=== PATIENT | female | born 1950 | race Caucasian/White ===

== ENCOUNTER 2021-05-02 11:20 | Emergency (ER) | payer MEDICARE, MEDICAID ==
[~2021-05-02] VITALS: Ht 157.5 cm; Wt 94.1 kg
[~2021-05-02 11:20] MED LIST: ASPI-611 PO; ATEN25TA PO; BENA1TAB14 PO; ESTR0.6261 PO; HYDR-4069 PO; IBUP-1986 PO; MONT10TA21 PO; SIMV40TA PO
[2021-05-02 13:27] VITALS: BP 153/93
== END 2021-05-02 15:02 | disposition home or self-care (01) ==
LOC: ER 11:20
DX: M25.562 Pain in left knee (principal); R22.42 Localized swelling, mass and lump, left lower limb; E78.00 Pure hypercholesterolemia, unspecified; I10 Essential (primary) hypertension; M19.90 Unspecified osteoarthritis, unspecified site; G89.29 Other chronic pain; Z79.82 Long term (current) use of aspirin; Z79.899 Other long term (current) drug therapy
CPT/HCPCS: 29505; 73564; 99283

== ENCOUNTER 2022-08-23 07:34 | Day surgery (SDC) | payer MEDICARE, MEDICAID ==
[2022-08-16 12:12] LABS: CLARITY,URINE SLIGHTLY CLOUDY (Clear); COLOR,URINE STRAW (Yellow); GLUCOSE, URINE NEGATIVE (Neg); KETONES,URINE NEGATIVE (Neg); LEUKOCYTE ESTERASE ,URINE NEGATIVE (Neg); NITRITES, URINE NEGATIVE (Neg); OCCULT BLOOD,URINE NEGATIVE (Neg); PROTEIN,URINE NEGATIVE (Neg); UROBILINOGEN,URINE 0.2 E.U/dL (0.2-1.0)
[2022-08-16 12:28] LABS: BASOPHILS % (AUTO) 0.4 % (0-1); EOSINOPHILS # (AUTO) 0.1 X10'3 (0-0.9); EOSINOPHILS % (AUTO) 1.3 % (0-6); LYMPHOCYTES # (AUTO) 1.8 X10'3 (1.1-4.8); MEAN CORPUSCULAR HEMOGLOBIN 31.2 PG (27.0-31.0); MEAN CORPUSCULAR HGB CONC 33.6 g/dL (33.0-36.5); MEAN CORPUSCULAR VOLUME 92.9 FL (78-98); MONOCYTES # (AUTO) 0.7 X10'3 (0-0.9); NEUTROPHILS # (AUTO) 4.7 X10'3 (1.8-7.7); NEUTROPHILS % (AUTO) 64.3 % (42-75); PRE OP HEMATOCRIT 44.7 % (35.0-45.0); PRE OP PLATELET COUNT 155 X10'3 (140-440); RED BLOOD COUNT 4.81 X10'6 (4.20-5.60); RED CELL DISTRIBUTION WIDTH 12.6 % (11.5-14.5)
[2022-08-16 12:34] LABS: UA COLLECTION TYPE NON-SPECIFIED
[2022-08-16 12:35] LABS: SQUAMOUS EPITHELIAL CELL,UR MODERATE /LPF (FEW)
[2022-08-16 12:36] LABS: BACTERIA,URINE FEW /HPF (Neg); RBC,URINE 0-2 /HPF (0-2); WBC,URINE 0-4 /HPF (0-4)
[2022-08-16 12:41] LABS: ALBUMIN 3.4 G/DL (3.4-5.0); ALBUMIN/GLOBULIN RATIO 0.9 (1.1-1.5); ALKALINE PHOSPHATASE 84 IU/L (46-116); BLOOD UREA NITROGEN 9 MG/DL (7-18); BUN/CREATININE RATIO 17.3 (6.6-38.0); CALCIUM 9.1 MG/DL (8.5-10.1); CHLORIDE 101 MMOL/L (99-107); CREATININE 0.52 MG/DL (0.40-0.90); PRE OP ALT 19 U/L (30-65); PRE OP ANION GAP 6 (8-16); PRE OP AST 25 U/L (10-37); PRE OP BILIRUB, TOTAL 0.5 MG/DL (0.0-1.0); PRE OP GLUCOSE 81 MG/DL (70-104); PRE OP POTASSIUM 3.4 MMOL/L (3.4-5.1); PRE OP SODIUM 137 MMOL/L (135-145); TOTAL CARBON DIOXIDE 29.7 MMOL/L (24-32); eGFR > 90 ML/MIN
[~2022-08-23] VITALS: Ht 152.4 cm; Wt 99.3 kg
[2022-08-23] VITALS (8 sets, daily range): BP systolic 121–142; BP diastolic 74–92
[~2022-08-23 07:34] MED LIST changes: -ASPI-611 PO; -ATEN25TA PO; +CARV-50 PO; +CYCL5TAB PO; +DOCUMENT DATE & TIME OF BETA-BLOCKER PO ONE; +ERGO500093 PO; +ESTR0.5T28 PO; -ESTR0.6261 PO; -IBUP-1986 PO; +ceFOXitin 2GM-NS 100mL ADDvant 100 ML IV ONE; +famotidine 20mg tablet PO ONE; +ringers solution, lacted 1,000 ML IV SCH
[2022-08-23] MEDS ORDERED: ringers solution, lacted 1,000 ML IV SCH (10:10)
[2022-08-23] MEDS ORDERED: fentaNYL/PF 50MCG/1 ML 2ML syringe IV PRN ×2 (10:10)
[2022-08-23] MEDS ORDERED: labetalol 20mg/4ml (5mg/ml) syringe IV PRN (10:10)
[2022-08-23] MEDS ORDERED: ondansetron/PF 4mg/2ml inj IV PRN (10:10)
[2022-08-23] MEDS ORDERED: hydrALAZINE 20mg/ml inj. IV PRN (10:10)
[2022-08-23] MEDS ORDERED: morphine 4 MG/ML inj SYRINge IV PRN (10:10)
[2022-08-23] MEDS ORDERED: morphine 2 MG/ML inj. syringe IV PRN (10:10)
[2022-08-23] MEDS ORDERED: dexamethasone sod phosphate 4mg/ml inj. ONE (10:13)
[2022-08-23] MEDS ORDERED: sevoflurane 250ml liquid IH ONE (10:13)
[2022-08-23] MEDS ORDERED: neostigmine methylsulfate 1 MG/ML 10ml vial ONE (10:13)
[2022-08-23] MEDS ORDERED: propofol inj 20 ML IV ONE (10:16)
[2022-08-23] MEDS ORDERED: midazolam 1 mg/ML 2ml injection ONE (10:16)
[2022-08-23] MEDS ORDERED: fentaNYL/PF 50MCG/1 ML 2ML syringe ONE (10:16)
[2022-08-23] MEDS ORDERED: LIDOcaine 1%/PF 5ML 10 MG/ML VIAL ONE (10:16)
[2022-08-23] MEDS ORDERED: rocuronium 10mg/ml inj IV ONE (10:17)
[2022-08-23] MEDS ORDERED: glycopyrrolate 0.2mg/ml inj ONE (10:17)
[2022-08-23] MEDS ORDERED: ondansetron/PF 4mg/2ml inj ONE (10:17)
[2022-08-23] MEDS ORDERED: bacitracin 15gm ointment TP ONE (10:33)
[2022-08-23] MEDS ORDERED: BUPIVAcaine 0.5% inj/PF 30 ML ONE (10:33)
[2022-08-23] MEDS ORDERED: labetalol 20mg/4ml (5mg/ml) syringe IV ONE (10:54)
[2022-08-23] MEDS ORDERED: BUPIVAcaine 0.5% inj/PF 30 ml vial IJ ONE (11:00)
[2022-08-23] MEDS ORDERED: sugammadex 200mg/2ml injection IV ONE (11:15)
--- NOTE | 2022-08-23 11:25 | NUR ---
Received from OR via , accompanied by Anesthesiologist and report given by Anesthesiolgist. PATIENT A&OX4, DENIES PAIN, V/S WNL, SCD ON , PIV 20G LUE, LAPS SITES CLOSED CDI TO ABDOMEN
--- NOTE | 2022-08-23 12:25 | NUR ---
PATIENT A&OX4, DENIES PAIN, V/S WNL, SCD OFF , PIV 20G LUE D/C, LAPS SITES CLOSED CDI TO ABDOMEN. I HAVE REVIEWED D/C INSTRUCTIONS WITH PATIENT AND THEY HAVE VERBALIZED UNDERSTANDING OF INSTRUCTIONS. PATIENT D/C HOME WITH ALL BELONGINGS AND FAMILY GAVE TRANSPORT
== END 2022-08-23 12:25 | disposition home or self-care (01) ==
LOC: PAS 07:34
PROVIDERS: ATTEND Surgery
DX: K80.10 Calculus of gallbladder with chronic cholecystitis without obstruction (principal); K82.8 Other specified diseases of gallbladder; I10 Essential (primary) hypertension; M85.80 Other specified disorders of bone density and structure, unspecified site; G62.9 Polyneuropathy, unspecified; M19.90 Unspecified osteoarthritis, unspecified site; G43.909 Migraine, unspecified, not intractable, without status migrainosus; E66.01 Morbid (severe) obesity due to excess calories; Z68.41 Body mass index [BMI] 40.0-44.9, adult; Z98.1 Arthrodesis status; Z79.899 Other long term (current) drug therapy; Z98.890 Other specified postprocedural states; Z90.710 Acquired absence of both cervix and uterus; Z87.891 Personal history of nicotine dependence; Z82.3 Family history of stroke; Z82.49 Family history of ischemic heart disease and other diseases of the circulatory system
CPT/HCPCS: 36415; 47562; 80053; 81001; 82948; 85025; J0694; J1100; J2250; J2405; J2704; J2710; J3010; J3490; J7030; J7120; S0020; Z7506; Z7508; Z7512; 88304; A4215; A4618; A7000

== ENCOUNTER 2024-02-08 09:53 | Emergency (ER) | payer MEDICARE, MEDICAID ==
[~2024-02-08] VITALS: Ht 154.9 cm; Wt 91.8 kg
[~2024-02-08 09:53] MED LIST changes: -CYCL5TAB PO; -DOCUMENT DATE & TIME OF BETA-BLOCKER PO ONE; +ERGO500041 PO; -ERGO500093 PO; -HYDR-4069 PO; +HYDR25TA90 PO; +METF-1203 PO; -MONT10TA21 PO; +SIMV-343 PO; -SIMV40TA PO; -ceFOXitin 2GM-NS 100mL ADDvant 100 ML IV ONE; -famotidine 20mg tablet PO ONE; -ringers solution, lacted 1,000 ML IV SCH
[2024-02-08 10:32] LABS: BILIRUBIN,URINE NEGATIVE (Neg); CLARITY,URINE CLEAR (Clear); COLOR,URINE YELLOW (Yellow); GLUCOSE, URINE NEGATIVE (Neg); KETONES,URINE NEGATIVE (Neg); LEUKOCYTE ESTERASE ,URINE SMALL (Neg); NITRITES, URINE NEGATIVE (Neg); OCCULT BLOOD,URINE NEGATIVE (Neg); PROTEIN,URINE NEGATIVE (Neg); UROBILINOGEN,URINE 0.2 E.U/dL (0.2-1.0)
[2024-02-08 10:36] LABS: BACTERIA,URINE NONE SEEN /HPF (Neg); RBC,URINE NONE SEEN /HPF (0-2); SQUAMOUS EPITHELIAL CELL,UR MODERATE /LPF (FEW); UA COLLECTION TYPE CLN CATCH MIDSTREAM; WBC,URINE 0-4 /HPF (0-4)
[2024-02-08 10:37] LABS: MUCUS STRANDS NONE SEEN /LPF (Neg)
[2024-02-08] MEDS ORDERED: SULF1TAB49 PO (11:13)
[2024-02-08] MEDS ORDERED: FLUC150T46 PO (11:13)
[2024-02-08 11:19] VITALS: BP 163/90; PULSE 62; RESP 16; TEMP 98; O2SAT 95
== END 2024-02-08 11:21 | disposition home or self-care (01) ==
LOC: ER 09:54
DX: N39.0 Urinary tract infection, site not specified (principal); E78.00 Pure hypercholesterolemia, unspecified; I10 Essential (primary) hypertension; M19.90 Unspecified osteoarthritis, unspecified site; G89.29 Other chronic pain; M54.9 Dorsalgia, unspecified; Z90.49 Acquired absence of other specified parts of digestive tract; Z98.890 Other specified postprocedural states; Z60.2 Problems related to living alone; Z79.899 Other long term (current) drug therapy; Z79.84 Long term (current) use of oral hypoglycemic drugs
CPT/HCPCS: 81001; 87077; 87088; 87186; 99283

== ENCOUNTER 2024-07-12 10:54 | Emergency (ER) | payer MEDICARE, MEDICAID ==
[~2024-07-12] VITALS: Ht 154.9 cm; Wt 86.5 kg
[2024-07-12 10:57] VITALS: BP 121/70; PULSE 67; RESP 16; TEMP 98.7; O2SAT 94
[2024-07-12 11:46] LABS: ALBUMIN 2.8 G/DL (3.4-5.0); ANION GAP 6 (8-16); BLOOD UREA NITROGEN 5 MG/DL (7-18); BUN/CREATININE RATIO 7.1 (10.0-20.0); CALCIUM 9.2 MG/DL (8.5-10.1); CHLORIDE 103 MMOL/L (99-107); GLUCOSE 102 MG/DL (70-104); POTASSIUM 3.5 MMOL/L (3.5-5.1); PRO BRAIN NATRIURETIC PEPTIDE 112 PG/ML (0-125); SODIUM 137 MMOL/L (135-145); TOTAL CARBON DIOXIDE 27.6 MMOL/L (24-32); eCRCL 55 ML/MIN; eGFR 82 ML/MIN
[2024-07-12 12:03] LABS: BASOPHILS # (AUTO) 0.1 X10'3 (0-0.2); EOSINOPHILS # (AUTO) 0.1 X10'3 (0-0.9); HEMOGLOBIN 14.2 g/dl (12.0-16.0)
[2024-07-12 12:05] LABS: BASOPHILS % (AUTO) 0.5 % (0-1); HEMATOCRIT 41.1 % (35.0-45.0); LYMPHOCYTES # (AUTO) 1.8 X10'3 (1.1-4.8); LYMPHOCYTES % (AUTO) 18.6 % (21-51); MEAN CORPUSCULAR HEMOGLOBIN 31.8 PG (27.0-31.0); MEAN CORPUSCULAR HGB CONC 34.6 g/dL (33.0-36.5); MEAN CORPUSCULAR VOLUME 91.7 FL (78-98); MONOCYTES % (AUTO) 10.3 % (2-12); NEUTROPHILS # (AUTO) 6.7 X10'3 (1.8-7.7); NEUTROPHILS % (AUTO) 69.6 % (42-75); RED BLOOD COUNT 4.49 X10'6 (4.20-5.60); RED CELL DISTRIBUTION WIDTH 13.4 % (11.5-14.5)
[2024-07-12 12:10] LABS: MEAN PLATELET VOLUME 8.1 FL (7.4-10.4); PLATELET COUNT 182 X10'3 (140-440); WHITE BLOOD COUNT 9.1 X10'3 (4.5-11.0)
[2024-07-12] MEDS ORDERED: PRED20TA PO (12:54)
[2024-07-12] MEDS ORDERED: AMOX875T2 PO (12:54)
[2024-07-12] MEDS: predniSONE 20 mg tablet PO ONE (13:08)
== END 2024-07-12 13:16 | disposition home or self-care (01) ==
LOC: ER 10:54
DX: J20.9 Acute bronchitis, unspecified (principal); E78.00 Pure hypercholesterolemia, unspecified; I10 Essential (primary) hypertension; M19.90 Unspecified osteoarthritis, unspecified site; G89.29 Other chronic pain; M54.9 Dorsalgia, unspecified; Z90.49 Acquired absence of other specified parts of digestive tract; Z60.2 Problems related to living alone; Z98.890 Other specified postprocedural states
CPT/HCPCS: 36415; 71046; 80048; 83605; 83880; 85025; 87040; 99284; J7512

== ENCOUNTER 2025-06-13 08:21 | Emergency (ER) | payer MEDICARE, MEDICAID ==
[~2025-06-13] VITALS: Ht 154.9 cm; Wt 92.0 kg
[~2025-06-13 08:21] MED LIST changes: +ERGO125018 PO; -ERGO500041 PO
[2025-06-13 08:42] VITALS: TEMP 98.7
[2025-06-13 09:04] LABS: LEUKOCYTE ESTERASE ,URINE SMALL (Neg); NITRITES, URINE NEGATIVE (Neg); OCCULT BLOOD,URINE LARGE (Neg)
[2025-06-13 09:08] LABS: UA COLLECTION TYPE CLN CATCH MIDSTREAM
[2025-06-13 09:09] LABS: MUCUS STRANDS NONE SEEN /LPF (Neg); SQUAMOUS EPITHELIAL CELL,UR FEW /LPF (FEW)
[2025-06-13] MEDS ORDERED: PHEN-824 PO (09:29)
[2025-06-13] MEDS ORDERED: NITR100C11 PO (09:29)
--- NOTE | 2025-06-13 09:29 | Physician Documentation ---
History of Present Illness ~ Chief Complaint: Urinary Symptoms Stated Complaint: URINARY COMPLICATIONS Time Seen by MD: 09:06 OK to notify your PCP?: Yes Primary Medical Doctor: Aleks Mayo Source: patient Mode of Arrival: POV Exam Limitations: no limitations HPI Reports having UTI symptoms for the past 4-5 days. She reports that there is pain with urination and she feels that she is urinating more frequently with less urinary output. She reports that she has tried drinking lots of water. She has been on a couple rounds of amoxicillin and Augmentin for dental abscesses over the past couple of months. She has actively been on amoxicillin 500 mg for the past week despite her urinary symptoms starting. She denies any fever, nausea, vomiting or diarrhea. She does report having some bilateral flank soreness. Medication Reconciliation Allergies: Coded Allergies: No Known Allergies (Unverified , 06/13/25) Scheduled Benazepril/Hydrochlorothiazide (Benazepril-Hctz 20-12.5 Mg Tab), 1 TABLET PO DAILY, (Reported) Carvedilol (Carvedilol), 1 TAB PO BID, (Reported) Ergocalciferol (Vitamin D2) (Vitamin D2), 1 CAP PO Q7D, (Reported) Estradiol (Estradiol), 1 TAB PO QAM, (Reported) Hydralazine Hcl* (Apresoline*), 1 TABLET PO DAILY, (Reported) Metformin HCl (Metformin HCl), 1 TAB PO TID, (Reported) Nitrofurantoin/Nitrofuran Mac (Nitrofurantoin [place]-Mcr 100 Mg), 1 CAP PO Q12H Phenazopyridine HCl (Pyridium), 1 TAB PO Q8H Simvastatin (Zocor), 1 TABLET PO HS, (Reported) Past Medical History Past Medical History: High Cholesterol, Hypertension, Arthritis, Chronic Back Pain Past Surgical History: cholecystectomy, , orthopedic surgeries, other Other Past Surgical History: back surgery Alcohol Use: None Drug Use: none Lives with: Alone Lives In: Home Occupation: employed Review of Systems All Other Systems at this time: Reviewed and Negative Physical Exam Vital Signs: RN Vital Signs have been reviewed: Yes, Temperature: 98.7, Source: Temporal, Heart Rate: 69, Respiratory Rate: 16, BP: 140/77, Pulse Oximetry: 95, Weight: 92.000 Oxygen Flow Rate: 0 Pulse Oximetry Reflects: adequate oxygenation Physical Exam General: Alert, no apparent distress. HEENT: PERRL, EOMI, no injection, moist mucous membranes. Neck: Full range of motion. Respiratory: Lungs clear, no respiratory distress. Chest: No accessory muscle use. Cardiovascular: Regular rate and rhythm, no murmurs. Gastrointestinal: Soft, nontender, nondistended. Bowels sounds present. Back: Bilateral CVA tenderness. Extremities: Normal range of motion, no deformity. Neurologic: Oriented x4. Psychiatric: Normal mood and affect. Skin: Normal color, warm and dry. No edema, no ecchymosis. Progress Results/Orders Reviewed/noted all lab results: Yes Results/Orders Vital Signs 06/13/25 06/13/25 08:25 08:42 Temp 97.6 98.7 Pulse 68 69 Resp 18 16 B/P (MAP) 179/84 140/77 (98) Pulse Ox 96 95 O2 Flow Rate 0 Laboratory Tests Test 06/13/25 08:30 Urine Specimen Description Cln catch midstream Urine Color Yellow Urine Clarity Clear Urine pH 5.5 Urine Specific [place] <=1.005 Urine Protein Negative Urine Glucose (UA) Negative Urine Ketones Negative Urine Occult Blood Large H Urine Nitrite Negative Urine Bilirubin Negative Urine Urobilinogen 0.2 Urine Leukocyte Esterase Small H Urine RBC 0-2 Urine WBC 20-30 H Urine Squamous Epithelial Cells Few Urine Bacteria Few Urine Mucus None seen Urine Culture Indicated Indicated Volume Urine Centrifuged 10 ml Urine Comment Medical Decision Making Additional information obtaine: old records Findings She presents with urinary tract infection symptoms. There does not appear to be any signs of sepsis. Vital signs are stable. Her urinalysis reveals she does have a UTI and her urine is sent for culture. I have placed her on Macrobid since she has already been taking Augmentin and amoxicillin for her tooth infections with no relief. Since she is having pain with urination, I also sent Pyridium to the pharmacy. Urinary Diff Dx:Considerations: Include: Pyelonephritis, Renal failure, Urinary Obstruction, Urinary retention, UTI Genital Diff Dx:Considerations: Include: UTI Departure Disposition: 01 HOME / SELF CARE / HOMELESS Impression: Primary Impression: Acute urinary tract infection Condition: Stable Discharge Instructions: Urinary Tract Infection, Adult Additional Instructions: Your urine was sent for culture. We will contact you within 3-4 days if your antibiotic regimen needs adjusting. Drink plenty of fluids. Please return to the emergency department if you develop any new or concerning symptoms such as severe nausea and vomiting and unable to keep liquids down, if you develop severe back/flank or stomach pain, or if your symptoms are not clearly improving at home. Some people with this infection are sent home on a medication to numb the urinary tract. If you were sent home on this medication, do not be alarmed if your urine turns dark orange or reddish in color, this is a safe side effect of this medication. Referrals: NO PRIMARY CARE PROVIDER (PCP) Prescriptions Phenazopyridine HCl (Pyridium) 100 Mg Tablet 1 TAB PO Q8H for urinary discomfort for 3 Days, #9 TAB 0 Refills Prov: TRENA WELSH 06/13/25 Nitrofurantoin/Nitrofuran Mac (Nitrofurantoin [place]-Mcr 100 Mg) 100 Mg Capsule 1 CAP PO Q12H for 7 Days, #14 CAP 0 Refills Prov: TRENA WELSH 06/13/25 Education Educated: Patient Educated regarding: diagnosis, treatment, prognosis, need for follow up Additional Comment Medical Screen Exam This patient recieved a medical screening examination. After reviewing the individual's medical complaints with presenting symptoms and performing an appropriate physical examination, it was determined that no immediate life- threatening emergency medical condition is present. This individual is also not a women having contractions. Signature Scribe Signature: . Attestation: Scribed for Trena Welsh by Trena Lemos NP . 06/13/25 09:27 Parts of this note were created using [employer] voice recognition software program. While efforts were made to correct any mistakes made by this voice recognition software program, nonsensical phrases may remain in this note. In addition, there may be errors and syntax, grammar, content and spelling. TRENA WELSH Jun 13, 2025 09:29
[2025-06-13 09:53] VITALS: BP 164/90; PULSE 65; RESP 18; O2SAT 94
== END 2025-06-13 09:54 | disposition home or self-care (01) ==
LOC: ER 08:21
DX: N39.0 Urinary tract infection, site not specified (principal); E78.00 Pure hypercholesterolemia, unspecified; G89.29 Other chronic pain; I10 Essential (primary) hypertension; M19.90 Unspecified osteoarthritis, unspecified site; Z90.49 Acquired absence of other specified parts of digestive tract; Z79.899 Other long term (current) drug therapy; Z60.2 Problems related to living alone; Z98.890 Other specified postprocedural states
CPT/HCPCS: 81001; 87088; 99283